=== PATIENT | female | born 1950 | race Caucasian/White ===

== ENCOUNTER → 2016-03-07 | Outpatient (CLI) | payer OTHER | LOC: MMPC 09:00 | PROVIDERS: ATTEND Student in an Organized Health Care Education/Training Program | DX: J32.0 Chronic maxillary sinusitis (principal) | CPT/HCPCS: 99213; G0463 ==

== ENCOUNTER → 2016-05-15 | Outpatient (CLI) | payer OTHER ==
--- NOTE | 2016-05-15 11:08 | DI ---
CT MAXFACIAL W/O CN FACE SINUS,05/15/2016 10:00 AM: Clinical History: Chronic pansinusitis. Previous Exam: None at this facility. Findings: Multiple helically acquired CT images are obtained through the paranasal sinuses without contrast. Visualized portions of the upper cervical spine are unremarkable. The mastoid air cells are unremarka ble. As well as portions of the inner ear ossicles are also unremarkable. There is some mild leftward deviation of the bony nasal septum. The ostiomeatal complexes are widely patent. The sphenoethmoidal recesses are also widely patent. There is no significant mucoperiosteal thickening. Visualized intracranial structures and intraorbital structures are unremarkable. Impression: Normal paranasal sinuses.
== END ==
LOC: CT 09:50
PROVIDERS: ATTEND Otolaryngology
DX: J32.4 Chronic pansinusitis (principal); R51 Headache
CPT/HCPCS: 70486

== ENCOUNTER → 2016-09-25 | Outpatient (CLI) | payer OTHER | LOC: MMPC 09:00 | PROVIDERS: ATTEND Family Medicine | DX: Z63.0 Problems in relationship with spouse or partner (principal) | CPT/HCPCS: 99212; G0463 ==

== ENCOUNTER 2018-12-20 11:59 | Observation (INO) ==
[~2018-12-20 11:59] MED LIST: LIDOCAINE W/ SODIUM BICARB 0.5 ML SYR SUBD PRN; Lactated Ringers 1,000 ML PRIMARY IV SCH
[2018-12-20] MEDS ORDERED: LIDOCAINE HCL 1%/EPI 1:100,000 - 20 ML VIAL ONE (12:35)
[2018-12-20] MEDS ORDERED: PROPOFOL 10 MG/1 ML (200 MG/20 ML) VIAL IV ONE (12:36)
[2018-12-20] MEDS ORDERED: OXYMETAZOLINE 0.05% 15 ML NASAL SPRAY ONE (12:36)
[2018-12-20] MEDS ORDERED: Bacitracin Oint 14.2 gm tube 14 APPLIC/14.2 GM TUBE TOPICAL ONE (12:37)
[2018-12-20] MEDS ORDERED: MIDAZOLAM 5 MG/1 ML ONE (12:37)
[2018-12-20] MEDS ORDERED: fentaNYL Inj 250 MCG/5 ML VIAL ONE (12:37)
[2018-12-20] MEDS ORDERED: ceFAZolin Inj 1 GM in Sodium Chloride 0.9% 100 ML IV ONE (13:07)
[2018-12-20] MEDS ORDERED: ceFAZolin 1 GM VIAL ONE (13:07)
[2018-12-20] MEDS ORDERED: HYDROcodone/APAP 7.5/325/15ml 15 ML CUP PO PRN (14:57)
[2018-12-20] MEDS ORDERED: D5-1/2NS 1,000 ML PRIMARY IV SCH (15:29)
[2018-12-20] MEDS: HYDROcodone/APAP 7.5/325/15ml 15 ML CUP PO PRN ×2 (19:02→23:30)
[2018-12-21] MEDS: HYDROcodone/APAP 7.5/325/15ml 15 ML CUP PO PRN ×2 (03:20→07:24)
[2018-12-21 07:40] VITALS: BP 118/43; RESP 28; TEMP 98
[2018-12-21] MEDS ORDERED: ONDANSETRON 4 MG/2 ML VIAL IVP PRN (08:30)
[2018-12-21 09:06] VITALS: O2SAT 95
[2018-12-21] MEDS ORDERED: ONDANSETRON 4 MG/2 ML VIAL IVP ONE (09:50)
[2018-12-21] MEDS ORDERED: Ondansetron ODT Tab 4 MG TAB PO ONE (10:00)
== END 2018-12-21 11:05 | disposition home or self-care (01) ==
LOC: MED/SURG 11:59 → OR 11:59 → OPS 12:00
PROVIDERS: ADMIT Otolaryngology; ATTEND Otolaryngology